=== PATIENT | female | born 1955 | race Caucasian/White ===

== ENCOUNTER 2024-02-14 12:06 | Emergency (ER) | payer OTHER, SELFPAY ==
[2024-02-14 12:11] VITALS: BP 125/78
--- NOTE | 2024-02-14 13:50 | ED.GENMED ---
History of Present Illness
General
Chief Complaint: Abdominal Pain
Source: patient
Time Seen by Provider: 02/14/24 13:25
Travel History
Have you had any contact with someone who has COVID-19?: No
Do you have any symptoms of coronavirus? Fever > 100 degrees, chills, cough, shortness of breath, sore throat, loss of taste or smell, muscle aches, or headache?: No
History of Present Illness
History of Present Illness:
68-year-old female with past medical history of SVT, migraines, diverticulosis presenting the emergency department for evaluation at the request of primary care provider after patient developed sudden onset lower abdominal pain, dark urine and
rectal pressure last night accompanied with nausea, intermittent fevers and generally feeling unwell. She presented to her primary care physician's office today who advised she come to the emergency department for CT scan of her abdomen and pelvis.
Patient states that while the severity of the pain has improved she still has the discomfort. She states since a COVID infection in November she has had some constant constipation which is not any different than usual but states she does not have a
sensation of stool within her rectum. She states she has never had this pain before. Notes a colonoscopy recently which showed some precancerous polyps as well as diverticulosis. Did not take anything for symptoms prior to arrival. No other
concerns presently.
Past History
Past History
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
ED Past Surgical History: Cardiac and Tonsilectomy
Social History
Tobacco: Non-smoker
Alcohol: None
Drug: None
Personal:
Living: with family
Employment: Employed
Family History
Family History: Hypertension
Review of Systems
Review of Systems
All Other Systems: ROS reviewed and negative except as documented in HPI and ROS
Phy Exam
Physical Exam
Physical Exam:
GENERAL: Alert , in no apparent distress
EYE: clear conjunctiva b/l
HEAD: NCAT
ENT: o/p clr, mmm.
CARDIAC: Regular rate and rhythm .
LUNGS: Clear breath sounds bilaterally, no acute respiratory distress, no wheezes/rales/rhonchi
ABDOMEN: Soft, diffusely tender lower abdomen, no r/g, no cvat, negative Iqbal sign, no tenderness at McBurney's point
NEUROLOGICAL: Alert and oriented
SKIN: Warm and dry, skin intact.
MUSCULOSKELETAL: well perfused.
PSYCH: Normal and appropriate interaction.
Scores
Heart Failure Risk
Heart Failure Risk Score: Not Applicable
Heart Score for Chest Pain Patients
STEMI patient?: Not applicable
Withdrawal Assessment of Alcohol
Withdrawal Assessment Completed?: Not applicable
Course
Orders/Labs/Results
Orders:
Orders
02/14/24 13:46
CT Abd/pelvis W Iv Cont Urgent
Comment:
Reason For Exam: diffuse lower abd pain
0.9% Sodium Chloride 1000 ml [Nss] 1,000 ml IV BOLUS
Acetaminophen [Tylenol] 650 mg PO NOW STA
02/14/24 14:13
Complete Blood Count/With Diff Urgent
Comprehensive Metabolic Panel Urgent
Lipase Urgent
Urinalysis Reflex To Culture Urgent
Date Specimen was Collected: 02/14/24
Time Specimen was Collected: 14:05
Urine Microscopic Reflex Cult Urgent
Influenza A+B Rapid Molecular Urgent
JULIET Source: Nasal Swab
Specimen Description:
Urine Culture Urgent
JULIET Source: U
Specimen Description:
Date Specimen was Collected: 02/14/24
Time Specimen was Collected: 14:05
02/14/24 15:17
Influenza A+B Rapid Molecular Routine
JULIET Source: [facility]
Specimen Description:
Abnormal Lab Results
02/14/24
14:13
WBC 13.6 H 10^3/uL
(4.8-10.8)
Abs Immat Gran (auto) 0.1 H 10^3/uL
(0-0.05)
Absolute Neuts (auto) 10.7 H 10^3/uL
(1.4-6.5)
Absolute Monos (auto) 1.3 H 10^3/uL
(0.1-0.6)
Neutrophils % 78.8 H %
(42.2-75.2)
Lymphocytes % 10.8 L %
(20.5-51.1)
Monocytes % 9.7 H %
(1.7-9.3)
Sodium 132 L mmol/L
(135-145)
BUN 19 H mg/dl
(7-17)
Total Protein 6.2 L g/dl
(6.3-8.2)
Urine Ketones 2+ A
(Negative)
Ur Occult Blood Reflex 3+ A
(Negative)
Urine Bilirubin 1+ A
(Negative)
Leukocyte Esterase Rfl 2+ A
(Negative)
Urine RBC 3-6 A /HPF
(0-2)
Urine WBC (Reflex) 11-15 A /HPF
(0-5)
Urine Bacteria (Reflex) Moderate A
(Negative)
02/14/24 14:13
02/14/24 14:13
Vital Signs
Initial and Last Documented VS:
Initial Vital Signs
Temp Pulse Resp BP Pulse Ox
99.9 F 92 18 125/78 99
02/14/24 12:11 02/14/24 12:11 02/14/24 12:11 02/14/24 12:11 02/14/24 12:11
Last Documented Vital Signs
Temp Pulse Resp BP Pulse Ox
100.3 F 92 18 129/69 97
02/14/24 14:58 02/14/24 12:11 02/14/24 12:11 02/14/24 14:14 02/14/24 14:15
MDM/Problems Addressed
Differential Diagnosis Includes:
Diverticulitis, urinary tract infection, appendicitis, less concern for cholecystitis, constipation
MDM/Problems Addressed:
68-year-old female presenting the emergency department for evaluation of sudden onset abdominal pain, little bit improved today although still symptomatic. Sent to the emergency department at the request of primary care provider for CT scan of the
abdomen pelvis. Exam reveals a quite tender lower abdomen. Patient did states she also has a mild headache. Requesting some Tylenol for this. Will check labs, CT imaging as well as urinalysis. Reassessment following.
*Radiology
Radiology exam reviewed: radiology read reviewed
*Pulse Oximetry
Patient hypoxic: no
*Critical Care Note
Total Time (30-74mins, 75-104mins- exclusive of procedures): Not Applicable
Patient Management
Discussion with other providers: PCP
Escalation/DeEscalation of care consider admission/obs:
Patient CT scan shows acute uncomplicated sigmoid diverticulitis. Patient provided with a printout of her CT report which goes over her incidental findings. Given patient's low-grade fever here we discussed risk versus benefit of inpatient
hospitalization and treatment versus outpatient oral antibiotics and patient is ultimately okay with taking oral antibiotics at home. Return precautions discussed. Notified primary care provider of the patient's CT findings and they will help
facilitate outpatient follow-up.
ED Attending Note
-
Portions of this chart may have been created with voice recognition software.� Occasional wrong word or��sound alike� substitutions may have occurred due to the inherent limitations of voice recognition software.
Discharge Plan
Departure
Patient Disposition: Home (Routine Discharge)
Date of Disposition: 02/14/24
Time of Disposition: 17:00
Patient with high blood pressure during this ER visit?: No
Discharge Problem:
Diverticulitis of sigmoid colon
Instructions: Diverticulitis (DC)
Prescriptions:
New
amoxicillin-pot clavulanate 875-125 mg tablet
1 tab PO BID 10 Days Qty: 20 0RF
No Action
cholecalciferol (vitamin D3) 1,000 UNITS tablet
2,000 units PO DAILY
melatonin-pyridoxine HCl (B6) 1 EACH tablet extended release
1 ea PO HS PRN (Reason: sleep)
rimegepant [Nurtec ODT] 75 MG tablet,disintegrating
75 mg PO PRN PRN (Reason: migraine)
diltiazem HCl 120 MG capsule,extended release 24hr
120 mg PO DAILY
Referrals:
Daly Chapin PA [Family Provider] -
Interventions
Interventions:
*Risk Screen - Suicide Last Done: 02/14/24 12:11
*General Assessment Last Done: 02/14/24 12:11
*Neglect/Abuse Screening Last Done: 02/14/24 12:11
*ED COVID-19 Vaccine History Last Done: 02/14/24 12:11
Discharge Date and Time
Print Language: BULGARIAN
[2024-02-14 14:14] VITALS: BP 129/69
[2024-02-14 14:16] VITALS: BMI 29.7
[2024-02-14] MEDS: NSS 1000 IV (14:16)
[2024-02-14 14:25] LABS: % Basophils 0.2 % (0-2); % Eosinophils 0.1 % (0-6); % Immature Granulocytes 0.4 % (0-0.5); % Lymphocytes 10.8 % (20.5-51.1); % Monocytes 9.7 % (1.7-9.3); % Neutrophils 78.8 % (42.2-75.2); Absolute Immature Granulocytes 0.1 10^3/uL (0-0.05); Absolute Lymphocytes 1.5 10^3/uL (1.2-3.4); Absolute Monocytes 1.3 10^3/uL (0.1-0.6); Absolute Neutrophils 10.7 10^3/uL (1.4-6.5); Hematocrit 40.1 % (37.0-47.0); Hemoglobin 13.8 g/dL (12.0-16.0); Mean Corp Hgb Conc. 34.4 g/dL (33.0-37.0); Mean Corpuscular Hgb 29.3 pg (27.0-31.0); Mean Corpuscular Volume 85.1 fL (81.0-99.0); Mean Platelet Volume 8.9 fL (7.4-10.4); Nucleated Red Blood Cells % 0 %; Platelet Count 236 10^3/uL (130-400); Red Blood Cell Count 4.71 10^6/uL (4.20-5.40); Red Cell Dist. Width 13.1 % (11.5-14.5); White Blood Cell Count 13.6 10^3/uL (4.8-10.8)
[2024-02-14 14:29] LABS: Urine Albumin Trace (Neg - Trace); Urine Bilirubin 1+ (Negative); Urine Character Slightly Cloudy (Clear); Urine Color Yellow; Urine Glucose Negative (Negative); Urine Ketone 2+ (Negative); Urine Leukocyte 2+ (Negative); Urine Nitrite Negative (Negative); Urine Occult Blood 3+ (Negative); Urine Specific Gravity 1.015 (<1.030); Urine Urobilinogen Negative (Neg - 1+)
[2024-02-14 14:39] LABS: Urine Squamous Cell 16-20 /LPF (Few)
[2024-02-14 14:40] LABS: Urine Bacteria Moderate (Negative); Urine Mucus Few
[2024-02-14 14:43] LABS: ALT (SGPT) 13 U/L (0-35); AST (SGOT) 19 U/L (14-36); Albumin 3.7 g/dl (3.5-5.0); Alkaline Phosphatase 60 U/L (38-126); Blood Urea Nitrogen 19 mg/dl (7-17); Carbon Dioxide 22 mmol/L (22-30); Chloride 106 mmol/L (98-107); Estimated Creatinine Clearance 86 ml/min; Glucose 94 mg/dl (70-99); Lipase 64 U/L (23-300); Potassium 3.6 mmol/L (3.5-5.1); Sodium 132 mmol/L (135-145); Total Bilirubin 1.3 mg/dl (0.2-1.3); Total Protein 6.2 g/dl (6.3-8.2); eGFR > 60.00
[2024-02-14] MEDS: TYLENOL 650 MG PO (14:53)
[2024-02-14 15:00] VITALS: BP 134/70
[2024-02-14 16:00] VITALS: BP 114/66
[2024-02-14 17:19] VITALS: BP 131/65
== END 2024-02-14 17:36 | disposition home or self-care (01) ==
LOC: EMR 12:06
PROVIDERS: Physician Assistant Medical; EMERGENCY PHYSICIAN Emergency Medicine; FAMILY PHYSICIAN Family Medicine
DX: K57.32 Diverticulitis of large intestine without perforation or abscess without bleeding (principal); R03.0 Elevated blood-pressure reading, without diagnosis of hypertension
CPT/HCPCS: 99285; 96360; 74177; 80053; 81003; 81015; 83690; 85025; 87086; 87502; Q9967

== ENCOUNTER 2024-02-21 06:12 | Emergency (ER) | payer OTHER, SELFPAY ==
[2024-02-21 06:20] VITALS: BP 150/101
--- NOTE | 2024-02-21 07:28 | ED.GENMED ---
History of Present Illness
General
Chief Complaint: Allergic Reaction
Source: patient
Exam Limitations: none
Time Seen by Provider: 02/21/24 07:14
Travel History
Have you had any contact with someone who has COVID-19?: No
Do you have any symptoms of coronavirus? Fever > 100 degrees, chills, cough, shortness of breath, sore throat, loss of taste or smell, muscle aches, or headache?: No
History of Present Illness
History of Present Illness:
See MDM
Past History
Past History
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
ED Past Surgical History: Cardiac and Tonsilectomy
Social History
Tobacco: Non-smoker
Alcohol: None
Drug: None
Personal:
Living: with family
Employment: Employed
Family History
Family History: Hypertension
Phy Exam
Physical Exam
Physical Exam:
See MDM
Course
Orders/Labs/Results
Orders:
Orders
02/21/24 07:27
Dexamethasone Pf [Decadron] 10 mg PO NOW STA
Vital Signs
Initial and Last Documented VS:
Initial Vital Signs
Temp Pulse Resp BP Pulse Ox
97.6 F 59 16 150/101 98
02/21/24 06:20 02/21/24 06:20 02/21/24 06:20 02/21/24 06:20 02/21/24 06:20
Last Documented Vital Signs
Temp Pulse Resp BP Pulse Ox
97.6 F 59 16 150/101 98
02/21/24 06:20 02/21/24 06:20 02/21/24 06:20 02/21/24 06:20 02/21/24 06:20
MDM/Problems Addressed
Differential Diagnosis Includes:
HPI and MDM Narrative:
68-year-old female presenting with diffuse rash. She noticed it over the past 24 hours. She is worried it is getting worse. She has taken 6 days of a 10-day course of Augmentin. This was prescribed last week for acute diverticulitis. Patient
states she is mildly nauseous still but blames this on the Augmentin. She has taken Augmentin in the past without difficulty. She states her abdominal pain has improved. She now has graduated her diet. Patient denies vomiting or trouble breathing
On exam, patient does have diffuse erythematous rash. There is a negative Nikolsky sign. No purpura. No mucous membrane involvement
We discussed an adverse medication reaction and will start steroids
Physical exam
General: Well appearing and non-toxic
HEENT: protecting airway
Neck: appears supple
CV: No evidence of cyanosis
Resp: No accessory muscle use
Abd: Non-distended. No left lower quadrant tenderness noted
Extremities: No deformities
Neuro: alert
Psych: Normal affect
Skin: Diffuse maculopapular erythematous rash
Problems Addressed including Acute and Chronic Conditions affecting care:
1. Adverse drug reaction rash
Acuity: acute
Prognosis: stable
Details: Will start steroids
Differential Diagnosis (but not limited to): Adverse drug reaction, allergic reaction
Testing considered: Repeat blood work
Drug therapy (if applicable): OTC meds, please see d/c instruction regarding Rx drugs
Amount and/or Complexity of Data Reviewed
Clinical info obtained from: Patient
External data reviewed: Recently started on Augmentin last week
Labs I independently reviewed (but not limited to): N/A
Radiology: N/A
Pulse Ox: not hypoxic
EKG independently reviewed: N/A
Field Nurse Case Manager: N/A
Critical Care: N/A
Risk of Complication:
Social Determinants of health: Good social support
Discussed with other providers: N/A
Escalation of Care includes Admit/Obs: After being observed in the Emergency Department, pt stable for discharge.
Occasional wrong word or 'sound a like' substitutions may have occurred due to the inherent limitations of voice recognition software. Read the chart carefully and recognize, using context, where substitutions have occurred.
*Critical Care Note
Total Time (30-74mins, 75-104mins- exclusive of procedures): Not Applicable
ED Attending Note
-
Portions of this chart may have been created with voice recognition software.� Occasional wrong word or��sound alike� substitutions may have occurred due to the inherent limitations of voice recognition software.
Discharge Plan
Departure
Patient Disposition: Home (Routine Discharge)
Date of Disposition: 02/21/24
Time of Disposition: 07:32
Patient with high blood pressure during this ER visit?: Yes
Discharge Problem:
Adverse drug reaction
Instructions: Adverse Drug Reactions, Adult (DC), BLOOD PRESSURE
Prescriptions:
New
methylprednisolone [Medrol (Mohsen)] 4 mg tablets,dose pack
See Rx Instructions .ROUTE .COMPLEX Qty: 21 0RF
Rx Instructions:
orally per package directions
No Action
cholecalciferol (vitamin D3) 1,000 UNITS tablet
2,000 units PO DAILY
melatonin-pyridoxine HCl (B6) 1 EACH tablet extended release
1 ea PO HS PRN (Reason: sleep)
rimegepant [Nurtec ODT] 75 MG tablet,disintegrating
75 mg PO PRN PRN (Reason: migraine)
diltiazem HCl 120 MG capsule,extended release 24hr
120 mg PO DAILY
amoxicillin-pot clavulanate 875-125 mg tablet
1 tab PO BID 10 Days Qty: 20 0RF
Activity Restrictions/Additional Instructions:
Please return for any worsening symptoms.
You may return at any time if you have further concerns.
Please follow up with your doctor at the first available appointment, preferably this week.
Thank you for choosing [facility].
Discharge Date and Time
Print Language: MACEDONIAN
[2024-02-21] MEDS: DECADRON 10 MG PO (07:42)
[2024-02-21 07:49] VITALS: BP 135/79
== END 2024-02-21 07:50 | disposition home or self-care (01) ==
LOC: EMR 06:12
PROVIDERS: EMERGENCY PHYSICIAN Student in an Organized Health Care Education/Training Program; FAMILY PHYSICIAN Family Medicine
DX: R21 Rash and other nonspecific skin eruption (principal); T36.0X5A Adverse effect of penicillins, initial encounter; T36.1X5A Adverse effect of cephalosporins and other beta-lactam antibiotics, initial encounter
CPT/HCPCS: 99283

== ENCOUNTER → 2025-03-18 06:57 | Outpatient (REF) | payer OTHER, SELFPAY | LOC: MRI 3T 06:57 | PROVIDERS: ATTENDING PHYSICIAN Orthopaedic Surgery; FAMILY PHYSICIAN Family Medicine | DX: M25.561 Pain in right knee (principal) | CPT/HCPCS: 73721 ==

== ENCOUNTER → 2025-09-05 06:30 | Outpatient (REF) | payer OTHER, SELFPAY | LOC: MRI 06:30 | PROVIDERS: ATTENDING PHYSICIAN Orthopaedic Surgery; FAMILY PHYSICIAN Family Medicine | DX: M54.50 Low back pain, unspecified (principal) | CPT/HCPCS: 72148 ==